=== PATIENT | female | born 1930 | race African-American/Black ===

== ENCOUNTER → 2016-09-06 | Outpatient (CLI) | payer MEDICARE, BC ==
--- NOTE | 2016-09-06 16:47 | RAD ---
Indication urinary retention. A limited pelvic examination was performed. The examination was targeted to the bladder. A prevoid bladder volume estimated at 300 cc was obtained. The patient then voided and the residual post void volume was estimated at 260 cc. No free fluid or pelvic mass was seen. IMPRESSION: Moderately large post void residual estimated at approximately 260 cc
[2016-09-06 17:49] LABS: BASO % 1 % (0-3); EOS % 0 % (0-3); HEMATOCRIT 37.6 % (36.0-47.0); HEMOGLOBIN 12.6 g/dL (12.0-15.5); LYMPH # 1.4 x10^3/uL (1.0-4.8); LYMPH % 20 % (24-48); MEAN CORPUSCULAR HEMOGLOBIN 31 pg (25-35); MEAN CORPUSCULAR HGB CONC 34 g/dL (31-37); MEAN CORPUSCULAR VOLUME 93 fL (79-100); MONO # 0.7 x10^3/uL (0.0-1.1); MONO % 10 % (0-9); NEUT # 4.9 x10^3uL (1.8-7.7); NEUT % 69 % (31-73); PLATELET COUNT 177 x10^3/uL (140-400); RED BLOOD COUNT 4.04 x10^6/uL (3.50-5.40); RED CELL DISTRIBUTION WIDTH 13.5 % (11.5-14.5); WHITE BLOOD COUNT 7.2 x10^3/uL (4.0-11.0)
[2016-09-06 17:56] LABS: ALBUMIN 3.2 g/dL (3.4-5.0); ALBUMIN/GLOBULIN RATIO 0.7 (1.0-1.7); CALCIUM 8.9 mg/dL (8.5-10.1); CREATININE 0.8 mg/dL (0.6-1.0); GFR 82.3; POTASSIUM 3.4 mmol/L (3.5-5.1); TOTAL BILIRUBIN 0.9 mg/dL (0.2-1.0)
[2016-09-06 20:52] LABS: BILIRUBIN,URINE NEG (NEG); CLARITY,URINE CLOUDY; COLOR,URINE YELLOW; GLUCOSE,URINE NEG (NEG); NITRITE,URINE NEG (NEG); UROBILINOGEN,URINE 0.2 mg/dL (0.2 mg/dL)
[2016-09-06 20:53] LABS: BACTERIA,URINE MOD /HPF (0-FEW); SQUAMOUS EPITHELIAL CELL,UR MANY /LPF; WBC,URINE >40 /HPF (0-4)
== END | disposition home or self-care (01) ==
LOC: US 16:01
PROVIDERS: ATTEND Internal Medicine
DX: R33.9 Retention of urine, unspecified (principal)
CPT/HCPCS: 36415; 76857; 80053; 81001; 85027

== ENCOUNTER 2017-03-04 14:30 | Emergency (ER) | payer MEDICARE, BC ==
[~2017-03-04] VITALS: Ht 152.4 cm; Wt 85.3 kg
[2017-03-04 15:18] LABS: BASO % 0 % (0-3); EOS % 0 % (0-3); HEMOGLOBIN 13.7 g/dL (12.0-15.5); LYMPH # 1.2 x10^3/uL (1.0-4.8); LYMPH % 16 % (24-48); MEAN CORPUSCULAR HEMOGLOBIN 31 pg (25-35); MEAN CORPUSCULAR HGB CONC 34 g/dL (31-37); MEAN CORPUSCULAR VOLUME 91 fL (79-100); MONO # 0.8 x10^3/uL (0.0-1.1); MONO % 10 % (0-9); NEUT # 5.8 x10^3uL (1.8-7.7); NEUT % 74 % (31-73); PLATELET COUNT 195 x10^3/uL (140-400); RED CELL DISTRIBUTION WIDTH 14.6 % (11.5-14.5); WHITE BLOOD COUNT 7.8 x10^3/uL (4.0-11.0)
[2017-03-04 15:26] VITALS: BP 152/65
[2017-03-04 15:28] LABS: CALCIUM 9.1 mg/dL (8.5-10.1); CREATININE 1.2 mg/dL (0.6-1.0); GFR 51.5
[2017-03-04] MEDS ORDERED: MORPHINE SULFATE 4 MG/ML DISP.SYRIN. IV ONE (15:30)
[2017-03-04] MEDS ORDERED: ONDANSETRON PF 4 MG/2 ML VIAL. IV ONE (15:30)
--- NOTE | 2017-03-04 16:29 | ED.ADGEN ---
Past History Past Medical History: CHF, High Cholesterol, Heart Disease, Hypertension Past Surgical History: Cholecystectomy, Hysterectomy, Other Alcohol Use: None Drug Use: None Adult General Chief Complaint Chief Complaint Diffuse abdominal pain HPI HPI Patient is a 86-year-old -[place] female who presents with diffuse abdominal pain starting last night. Patient epigastric and flank pain started last night as associated with nausea and vomiting. Nausea since resolved pain is now diffuse over mid abdomen. Reports chronic constipation, no diarrhea. No fever chills or sweats. No chest pain or shortness breath. No urinary frequency urgency or dysuria. No other acute symptoms or complaints. Review of Systems Review of Systems ROS as per HPI. Current Medications Current Medications Current Medications Medications (Trade) Dose Ordered Sig/Trevor Start Time Stop Time Status Last Admin Dose Admin Ceftriaxone Sodium 1 gm/ Sodium Chloride 50 ml @ 100 mls/hr 1X ONCE 03/04/17 18:30 03/04/17 18:59 Fentanyl Citrate (Fentanyl 2ml Vial) 50 mcg 1X ONCE 03/04/17 17:15 03/04/17 17:16 DC 03/04/17 17:10 50 MCG Iohexol (Omnipaque 300 Mg/ml) 75 ml 1X ONCE 03/04/17 16:30 03/04/17 16:31 DC 03/04/17 16:52 75 ML Morphine Sulfate (Morphine 4mg Syringe) 4 mg 1X ONCE 03/04/17 15:30 03/04/17 15:31 DC 03/04/17 15:25 4 MG Ondansetron HCl (Zofran) 4 mg 1X ONCE 03/04/17 15:30 03/04/17 15:31 DC 03/04/17 15:23 4 MG Allergies Allergies Allergies Coded Allergies Type Severity Reaction Last Updated Verified No Known Drug Allergies 03/04/17 No Physical Exam Physical Exam Constitutional: Well developed, well nourished, no acute distress. [] HENT: Normocephalic, atraumatic, bilateral external ears normal, oropharynx moist, no oral exudates, nose normal. [] Eyes: PERRLA, EOMI, conjunctiva normal, no discharge. [] Neck: Normal range of motion, no tenderness. [] Cardiovascular:Heart rate regular rhythm, no murmur. 2+ peripheral edema [] Lungs & Thorax: Bilateral breath sounds clear to auscultation [] Abdomen: Bowel sounds normal, soft, diffuse abdominal pain. [] Skin: Warm, dry, no erythema. [] Back: No tenderness. [] Extremities: No tenderness, no cyanosis, no clubbing, ROM intact, no edema. [] Neurologic: Alert and oriented X 3, normal motor function, normal sensory function, no focal deficits noted. [] Psychologic: Affect normal, judgement normal, mood normal. [] Current Patient Data Vital Signs Vital Signs Date Time Temp Pulse Resp B/P (MAP) Pulse Ox O2 Delivery O2 Flow Rate FiO2 03/04/17 17:10 16 03/04/17 15:26 74 152/65 (94) 96 Room Air Lab Results Laboratory Tests Test 03/04/17 14:53 03/04/17 16:02 White Blood Count 7.8 x10^3/uL (4.0-11.0) Red Blood Count 4.40 x10^6/uL (3.50-5.40) Hemoglobin 13.7 g/dL (12.0-15.5) Hematocrit 40.0 % (36.0-47.0) Mean Corpuscular Volume 91 fL (79-100) Mean Corpuscular Hemoglobin 31 pg (25-35) Mean Corpuscular Hemoglobin Concent 34 g/dL (31-37) Red Cell Distribution Width 14.6 % (11.5-14.5) H Platelet Count 195 x10^3/uL (140-400) Neutrophils (%) (Auto) 74 % (31-73) H Lymphocytes (%) (Auto) 16 % (24-48) L Monocytes (%) (Auto) 10 % (0-9) H Eosinophils (%) (Auto) 0 % (0-3) Basophils (%) (Auto) 0 % (0-3) Neutrophils # (Auto) 5.8 x10^3uL (1.8-7.7) Lymphocytes # (Auto) 1.2 x10^3/uL (1.0-4.8) Monocytes # (Auto) 0.8 x10^3/uL (0.0-1.1) Eosinophils # (Auto) 0.0 x10^3/uL (0.0-0.7) Basophils # (Auto) 0.0 x10^3/uL (0.0-0.2) Sodium Level 137 mmol/L (136-145) Potassium Level 4.0 mmol/L (3.5-5.1) Chloride Level 101 mmol/L (98-107) Carbon Dioxide Level 26 mmol/L (21-32) Anion Gap 10 (6-14) Blood Urea Nitrogen 12 mg/dL (7-20) Creatinine 1.2 mg/dL (0.6-1.0) H Estimated GFR (Cockcroft-Gault) 51.5 Glucose Level 148 mg/dL (70-99) H Calcium Level 9.1 mg/dL (8.5-10.1) Lipase 49 U/L (73-393) L Urine Collection Type Unknown Urine Color Yellow Urine Clarity Cloudy Urine pH 5.5 Urine Specific [place] 1.020 Urine Protein 30 mg/dl (NEG-TRACE) Urine Glucose (UA) Neg mg/dL (NEG) Urine Ketones (Stick) Trace mg/dL (NEG) Urine Blood Large (NEG) Urine Nitrite Neg (NEG) Urine Bilirubin Neg (NEG) Urine Urobilinogen Dipstick 0.2 mg/dL (0.2 mg/dL) Urine Leukocyte Esterase Large (NEG) Urine RBC >40 /HPF (0-2) Urine WBC >40 /HPF (0-4) Urine Squamous Epithelial Cells Few /LPF Urine Bacteria Many /HPF (0-FEW) EKG EKG [] Radiology/Procedures Radiology/Procedures [] Course & Med Decision Making Course & Med Decision Making Pertinent Labs and Imaging studies reviewed. (See chart for details) [Patient with infected 7 mm proximal kidney stone. IV fluids antibiotics given. Given there is no urology coverage at this facility, the patient required transfer to outlying facility. Care arrangements in process and to be coordinated with Dr. Thomas.] Final Impression Final Impression [1. Abdominal pain 2. Infected kidney stone] Problems: Dragon Disclaimer Dragon Disclaimer This electronic medical record was generated, in whole or in part, using a voice recognition dictation system. EITAN ROCHA DO Mar 04, 2017 16:29
[2017-03-04] MEDS ORDERED: IOHEXOL 300 MG/ML 75 ML VIAL. IV ONE (16:30)
[2017-03-04 16:40] LABS: BILIRUBIN,URINE NEG (NEG); CLARITY,URINE CLOUDY; COLOR,URINE YELLOW; GLUCOSE,URINE NEG (NEG)
[2017-03-04 16:41] LABS: BACTERIA,URINE MANY /HPF (0-FEW); NITRITE,URINE NEG (NEG); RBC,URINE >40 /HPF (0-2); SQUAMOUS EPITHELIAL CELL,UR FEW /LPF; UROBILINOGEN,URINE 0.2 mg/dL (0.2 mg/dL); WBC,URINE >40 /HPF (0-4)
[2017-03-04] MEDS ORDERED: fentaNYL PF 100 MCG/2 ML VIAL IV ONE (17:15)
--- NOTE | 2017-03-04 17:25 | RAD ---
CT ABD PELV W/ IV CONTRST ONLY dated 03/04/2017 4:20 PM Indication: Severe abdominal pain, nausea, recent hysterectomy and cholecystectomy.. Comparison: No comparison is available. Technique: Contiguous axial imaging of the abdomen and pelvis performed after the administration of 60 cc Omnipaque 300. One or more of the following individualized dose reduction techniques were utilized for this examination: 1. Automated exposure control 2. Adjustment of the mA and/or kV according to patient size 3. Use of iterative reconstruction technique Findings: Limited images of lung bases are clear. Heart size within normal limits. No pleural or pericardial effusion. Liver, spleen, pancreas, adrenal glands unremarkable. There is mild intrahepatic and extra hepatic biliary ductal dilatation with common bile duct measuring about 8 mm diameter. No apparent filling defect. Well-defined low-density focus at the upper pole left kidney, most consistent with cyst. There are additional low-density foci at the upper pole right kidney and midpole left kidney, also probably cysts. A 7 mm calcific stone at the right UPJ with moderate right hydronephrosis. Unopacified GI tract normal in caliber and contour. No focal bowel wall thickening. No inflammatory stranding in the mesentery. The appendix is not clearly identified. No inflammatory changes in the right lower quadrant. Images of the pelvis show mildly distended urinary bladder. Uterus is surgically absent. No free fluid or lymphadenopathy. Bone windows show no acute findings. Multilevel spondylosis. IMPRESSION: 1. Calcific stone at the right ureteropelvic junction with moderate obstructive uropathy. 2. Otherwise no acute finding. 3. Status post cholecystectomy and hysterectomy. Electronically signed by: Pascual Carrasco MD (03/04/2017 5:22 PM) [facility]
[2017-03-04] MEDS ORDERED: IV NORMAL SALINE 50ML 50 ML ONE (18:36)
[2017-03-04] MEDS ORDERED: cefTRIAXone SODIUM 1 GM VIAL IV ONE (18:36)
== END 2017-03-04 21:12 | disposition short-term general hospital (02) ==
LOC: ER 14:30
DX: N13.2 Hydronephrosis with renal and ureteral calculous obstruction (principal); I11.0 Hypertensive heart disease with heart failure; I50.9 Heart failure, unspecified; E78.00 Pure hypercholesterolemia, unspecified; Z90.49 Acquired absence of other specified parts of digestive tract; Z90.710 Acquired absence of both cervix and uterus
CPT/HCPCS: 36415; 74177; 80048; 81001; 83690; 85025; 87086; 96365; 96366; 96375; 99285; J0696; J2270; J2405; J3010; Q9967

== ENCOUNTER → 2018-09-22 | Outpatient (CLI) | payer MEDICARE, BC | END | disposition home or self-care (01) | LOC: SURG 12:54 | PROVIDERS: ATTEND Anesthesiology Pain Medicine | DX: M48.061 Spinal stenosis, lumbar region without neurogenic claudication (principal); M25.551 Pain in right hip; I11.0 Hypertensive heart disease with heart failure; I50.9 Heart failure, unspecified; E78.5 Hyperlipidemia, unspecified; K21.9 Gastro-esophageal reflux disease without esophagitis; E11.9 Type 2 diabetes mellitus without complications; E66.9 Obesity, unspecified; Z90.49 Acquired absence of other specified parts of digestive tract | CPT/HCPCS: 82947; 99213 ==